=== PATIENT | male | born 1990 | race Caucasian/White ===

== ENCOUNTER 2016-07-10 08:00 | Emergency (ER) | payer BC ==
[2016-07-10 08:38] VITALS: RESP 15; TEMP 96.8
--- NOTE | 2016-07-10 08:38 | PDOC ---
Headache HPI - General Chief Complaint: Headache Stated Complaint: MIGRAINE Date Seen by Provider: 07/10/16 Time Seen by Provider: 08:05 Source: POSITIVE: Patient Exam Limitations: POSITIVE: No limitations Nurse's Notes Reviewed & Considered: Yes - History of Present Illness Initial Comments: The patient is a 25-year-old male who presents to the emergency department for evaluation with a migraine headache. He states that since he was 12 years old he has had intermittent episodes where he developed spotty vision and sometimes some depth perception issues subsequently followed by headache and light sensitivity. He states that he has these episodes may be once a year. He states that this occurred last night while he was at work at the [employer]. He states that he was having the spotty vision associated with headache as well as sensitivity to heat and cold. The vrt mechanic at the [employer] evaluated him and found his blood pressure to be elevated at 170/90. He states that normally he does not have trouble with his blood pressure. They recommended that he be evaluated here in the emergency room. He states that he took 2 Excedrin Migraine and drank a cup of coffee. His headache has now basically resolved and is less than a 1 out of 10. He has no associated vision changes, numbness or weakness in extremities. He states he still just feels a little bit of a "hangover" from his headache. He states that this presentation is typical for episodes he has had in the past. He states that he has never really been formally evaluated or had any type of imaging. Generally when he gets these at home he rests in a dark room and his symptoms usually resolve after 6 or 7 hours if he is able to get some sleep. He states that he would not have come to the emergency room except that his work recommended he be evaluated and get a note before he could return to work. He denies any recent trauma or illness. - Patient Home Medications Home Medications: Home Medications Aspirin/Acetaminophen/Caffeine [Excedrin Caplet] 1 each PO PRN PRN 07/10/16 - Patient Allergies Allergies/Adverse Reactions: Allergies Allergy/AdvReac Type Severity Reaction Status Date / Time No Known Allergies Allergy Verified 07/10/16 08:04 Past Medical History - heen HEENT History: Denies History Cardiovascular History: Denies History Respiratory History: Denies History Gastrointestinal History: Denies History Genitourinary History: Denies History Endocrine History: Denies History Musculoskeletal History: Denies History Prosthesis or Implant: No Neurological History: Migraines Blood Disorders: Denies History Psychiatric History: Denies History History of Sexually Transmitted Diseases: No Male Reproductive History: Denies History Cancer History: Denies History In Past Year Been Physically Harmed or Verbally Threatened: No (PER PATIENT) History of MDRO: No History of Other Communicable Diseases: No Tobacco Use: Never Smoker Alcohol Use: Occasionally Type of alcohol normally used: Beer How much alcohol do you normally drink a day?: 3 BEERS 4x / WEEK Substance Use Type: None Previous Surgical History: Yes Type / Date of Surgery: TONSILLECTOMY Anesthesia Reactions: No Malignant Hyperthermia: No Family History of Malignant Hyperthermia: No Significant Family History: No pertinent family hx Past Medical History Reviewed: Reviewed - No Changes ROS - Limitations ROS Limitations: No Limitations Constitution: DENIES: Chills, Fever Cardiovascular: DENIES: Chest Pain, Heart Racing, Heart Palpitations, Blood Pressure Problem, Edema Respiratory: REPORTS: Denies Resp Symptoms Neurological: REPORTS: Headache, Dizziness. DENIES: Numbness, Weakness Gastrointestinal: REPORTS: Nausea (Resolved) Endocrine: REPORTS: Denies Symptoms Musculoskeletal: REPORTS: Denies MS Symptoms Eyes: REPORTS: Vision Changes (Spotty vision and somewhat increased difficulty with depth perception which is now resolved) ENT: DENIES: Congestion, Sinus Problem, Sore Throat Skin: DENIES: Rash Headache Exam - General Appearance General Appearance: POSITIVE: Alert, Cooperative, No Acute Distress - HEENT Head / Face: POSITIVE: No Facial Swelling Eyes: POSITIVE: Inspection Normal, PERRL, EOM's Intact, Other (Funduscopic exam is grossly normal) Ears: POSITIVE: Ears Normal Inspection Nose: POSITIVE: Inspection Normal Oropharynx: POSITIVE: External Inspection Nml, Airway Intact, Voice Normal, Moist Mucous Membranes - Neck Neck: POSITIVE: Normal Inspection. NEGATIVE: Lymphadenopathy - Respiratory / CVS Respiratory / CVS: POSITIVE: No Respiratory Distress, Heart Sounds Normal, Regular Rate/Rhythm, Breath Sounds Normal - Abdomen Abdomen: Soft: (All Quadrants), Denies Tenderness: (All Quadrants), No Distention: (All Quadrants) - Skin Skin: POSITIVE: Intact - Extremities Extremity: Normal ROM: (All Extremities), Normal Inspection: (All Extremities) Headache Progress - Patient's Progress MDM / ED Course: At this time the patient's symptoms have basically resolved and his pain is less than a 1 out of 10. This episode is typical for episodes that he has had in the past. At this point I recommended that he get some rest today and push fluids. Return to the emergency room if increased pain, any worsening or change in symptoms. I did advise that he should consider follow-up with primary care to discuss some formal evaluation for these episodes although by history they sound very consistent with migraine headaches. He was given a note not to work tonight and then he will return to work full duty after that. - Consult Counseled: POSITIVE: Patient, RE: DX, RE: Need for F/U Patient Care Time - Estimated PCT Patient Care Time (In Minutes): 10 Vital Signs - Recent Vital Signs Vital Signs: Vital Signs (Last 8 hours) Temp Pulse Resp BP Pulse Ox 07/10/16 08:00 96.8 F 67 15 149/97 94 - VS Reviewed Vital Signs Reviewed: Yes Discharge Clinical Impression: Migraine Condition: Stable Patient Instructions Given at Discharge: Migraine Headache (ED) Additional Instructions: Rest and push fluids. Continue Excedrin Migraine as needed for headache. Recommend returning to the emergency room if worsening headache, any worsening or change in symptoms. If symptoms continue or change in any way I would recommend following up with a primary care provider to discuss further evaluation and treatment. Follow Up With: JESSA BRADLEY [Primary Care Provider] -
== END 2016-07-10 08:35 | disposition home or self-care (01) ==
LOC: ER 08:02
DX: G43.909 Migraine, unspecified, not intractable, without status migrainosus (principal); R11.0 Nausea; R42 Dizziness and giddiness
CPT/HCPCS: 99282